=== PATIENT | female | born 2000 | race Caucasian/White ===

== ENCOUNTER → 2024-08-09 16:11 | Outpatient (REF) | payer OTHER, SELFPAY | LOC: RAD 16:11 | PROVIDERS: ATTENDING PHYSICIAN Nurse Practitioner Primary Care | DX: M54.42 Lumbago with sciatica, left side (principal); M54.16 Radiculopathy, lumbar region; R29.898 Other symptoms and signs involving the musculoskeletal system | CPT/HCPCS: 72110 ==

== ENCOUNTER → 2024-09-10 18:13 | Outpatient (REF) | payer OTHER, SELFPAY | LOC: PAVMRI 18:13 | PROVIDERS: ATTENDING PHYSICIAN Nurse Practitioner Primary Care | DX: M54.16 Radiculopathy, lumbar region (principal); M54.42 Lumbago with sciatica, left side; R29.898 Other symptoms and signs involving the musculoskeletal system | CPT/HCPCS: 72148 ==